=== PATIENT | female | born 1955 | race Caucasian/White ===

== ENCOUNTER 2022-05-04 16:49 | Emergency (ER) | payer BC, OTHER ==
[2022-05-04 17:08] VITALS: BP 165/93; PULSE 70; RESP 18; TEMP 98.3; BMI 27.5
[2022-05-04] MEDS ORDERED: LIDOCAINE 5% TOPICAL PATCH TP ONE (17:31)
[2022-05-04] MEDS ORDERED: ACETAMINOPHEN 500 MG TABLET (FP) PO ONE (17:31)
[2022-05-04] MEDS ORDERED: ACETAMINOPHEN 500 MG TABLET (FP) ONE (17:58)
[2022-05-04] MEDS ORDERED: LIDOCAINE 5% TOPICAL PATCH ONE (17:58)
[2022-05-04] MEDS ORDERED: LIDOCAINE PATCH REMOVAL MC SCH (22:00)
== END 2022-05-04 19:02 | disposition home or self-care (01) ==
LOC: FER 16:49
DX: S09.90XA Unspecified injury of head, initial encounter (principal); W19.XXXA Unspecified fall, initial encounter; Y92.9 Unspecified place or not applicable
CPT/HCPCS: 70450-TC; 72125-TC; 99284-25